=== PATIENT | male | born 1970 | race Caucasian/White ===

== ENCOUNTER 2018-10-12 17:31 | Inpatient (IN) | payer MEDICARE, OTHER ==
[~2018-10-12] VITALS: Ht 180.3 cm; Wt 118.5 kg
[2018-10-12] MEDS ORDERED: INSLAN SQ (17:41)
[2018-10-12] MEDS ORDERED: NIFE10 PO (17:41)
[2018-10-12] MEDS ORDERED: INSNOV SQ (17:41)
[2018-10-12] MEDS ORDERED: LOSA25TA41 PO (17:41)
[2018-10-12 17:44] LABS: GLUCOSE,POINT OF CARE 128 MG/DL (70-110)
[2018-10-12 18:39] LABS: BASOPHILS % (AUTO) 0.9 % (0.0-2.0); EOSINOPHILS % (AUTO) 1.2 % (1.0-6.0); HEMATOCRIT 30.8 % (41-53); HEMOGLOBIN 10.4 g/dL (13.5-17.5); LYMPHOCYTES # (AUTO) 0.9 K/uL (1.0-4.8); LYMPHOCYTES % (AUTO) 10.3 % (22.0-44.0); MEAN CORPUSCULAR HGB CONC 33.9 G/dL (31.0-37.0); MEAN CORPUSCULAR VOLUME 92 fL (80-100); MONOCYTES # (AUTO) 0.5 K/uL (0.1-1.0); MONOCYTES % (AUTO) 5.4 % (2.0-9.0); NEUTROPHILS # (AUTO) 7.5 K/uL (1.8-7.7); NEUTROPHILS % (AUTO) 82.2 % (40.0-70.0); PLATELET COUNT (AUTO) 207 K/uL (150-450); RED BLOOD CELL COUNT(AUTO) 3.37 MIL/uL (4.50-5.90); RED CELL DISTRIBUTION WIDTH 14.7 % (11.5-14.5)
[2018-10-12 18:54] LABS: ALBUMIN 3.4 g/dL (3.4-5.0); BILIRUBIN,TOTAL 0.4 mg/dL (0.1-1.0); CALCIUM, TOTAL 7.7 mg/dL (8.8-10.5); CREATININE 14.31 mg/dL (0.60-1.30); TOTAL PROTEIN, SERUM 7.6 g/dL (6.4-8.2)
[2018-10-12] MEDS ORDERED: INSULIN REGULAR, HUMAN 100 UNITS/ML IVP ONE (19:15)
[2018-10-12] MEDS ORDERED: SODIUM POLYSTYRENE SULFONATE 15 GM/60 ML SUSPENSION BOTTLE PO ONE (19:15)
[2018-10-12] MEDS ORDERED: DEXTROSE 50%-WATER 25 GM/50 ML SYRINGE IVP ONE (19:15)
[2018-10-12] MEDS ORDERED: ALBUTEROL SULFATE 5 MG/ML 20 ML NEB SOLN [BULK] NEB ONE (19:15)
[2018-10-12] MEDS ORDERED: CALCIUM GLUCONATE 100 MG/ML 10 ML IVP ONE (19:15)
[2018-10-12] MEDS ORDERED: ONDANSETRON HCL 4 MG/2 ML VIAL IVP PRN ×2 (21:45→22:15)
[2018-10-12] MEDS ORDERED: ACETAMINOPHEN 325 MG TABLET PO PRN ×2 (21:45→22:15)
[2018-10-12] MEDS ORDERED: 0.9% SODIUM CHLORIDE 10 ML SYRINGE IVP PRN (21:45)
[2018-10-12] MEDS ORDERED: MAGNESIUM HYDROXIDE SUSPENSION 30 ML UDCUP PO PRN (22:15)
[2018-10-12] MEDS ORDERED: ZOLPIDEM TARTRATE 5 MG TABLET PO PRN (22:15)
[2018-10-12] MEDS ORDERED: IPRATROPIUM BROMIDE 0.5 MG/2.5 ML NEB SOLUTION NEB PRN (22:15)
[2018-10-12] MEDS ORDERED: INSULIN LISPRO 100 UNITS/ML SQ PRN (22:15)
[2018-10-12] MEDS ORDERED: OxyCODONE HCL/ACETAMINOPHEN 5-325 MG TABLET PO PRN (22:15)
[2018-10-12] MEDS ORDERED: BISACODYL 10 MG RECTAL RECTAL SUPPOSITORY PR PRN (22:15)
[2018-10-12] MEDS ORDERED: MORPHINE SULFATE 2 MG/ML SYRINGE IVP PRN (22:15)
[2018-10-12] MEDS ORDERED: DEXTROSE 50%-WATER 25 GM/50 ML SYRINGE IVP PRN (22:15)
[2018-10-12] MEDS ORDERED: ALBUTEROL SULFATE 2.5 MG/0.5 ML NEB SOLUTION NEB PRN (22:15)
[2018-10-12 23:00] VITALS: BP 162/79
[2018-10-13 05:11] VITALS: BP 157/87
[2018-10-13 06:25] LABS: BASOPHILS % (AUTO) 0.3 % (0.0-2.0); EOSINOPHILS % (AUTO) 2.3 % (1.0-6.0); HEMATOCRIT 29.3 % (41-53); HEMOGLOBIN 9.6 g/dL (13.5-17.5); LYMPHOCYTES % (AUTO) 15.4 % (22.0-44.0); MEAN CORPUSCULAR HEMOGLOBIN 30.6 pg (26.0-34.0); MEAN CORPUSCULAR HGB CONC 32.6 G/dL (31.0-37.0); MEAN CORPUSCULAR VOLUME 94 fL (80-100); MONOCYTES # (AUTO) 0.5 K/uL (0.1-1.0); MONOCYTES % (AUTO) 7.2 % (2.0-9.0); NEUTROPHILS # (AUTO) 4.8 K/uL (1.8-7.7); NEUTROPHILS % (AUTO) 74.8 % (40.0-70.0); PLATELET COUNT (AUTO) 179 K/uL (150-450); RED BLOOD CELL COUNT(AUTO) 3.12 MIL/uL (4.50-5.90); RED CELL DISTRIBUTION WIDTH 14.9 % (11.5-14.5)
[2018-10-13 06:42] LABS: ALBUMIN 3.2 g/dL (3.4-5.0); BILIRUBIN,TOTAL 0.4 mg/dL (0.1-1.0); CALCIUM, TOTAL 8.5 mg/dL (8.8-10.5); CREATININE 11.48 mg/dL (0.60-1.30); MAGNESIUM 2.3 mg/dL (1.80-2.40); PHOSPHORUS 6.7 mg/dL (2.5-4.9); POTASSIUM 4.5 mmol/L (3.5-5.1); TOTAL PROTEIN, SERUM 7.3 g/dL (6.4-8.2)
[2018-10-13 06:50] LABS: GLUCOMETER DEV NAME(LOC) 5N.1; GLUCOSE,POINT OF CARE 131 MG/DL (70-110)
[2018-10-13 06:50] LABS: GLUCOMETER DEV NAME(LOC) 5N.1; GLUCOSE,POINT OF CARE 163 MG/DL (70-110)
[2018-10-13 07:21] LABS: HEMOGLOBIN A1C 9.3 % (4.5-6.2)
[2018-10-13 07:44] VITALS: BP 151/80
[2018-10-13] MEDS ORDERED: HEPARIN SODIUM,PORCINE 5,000 UNITS/ML VIAL SQ SCH (09:00)
[2018-10-13] MEDS ORDERED: AmLODIPine BESYLATE 10 MG TABLET PO SCH (09:00)
[2018-10-13] MEDS ORDERED: FAMOTIDINE 20 MG TABLET PO SCH (09:00)
[2018-10-13] MEDS ORDERED: EPOETIN ALFA 10,000 UNITS/ML VIAL SQ SCH (09:15)
[2018-10-13 11:53] VITALS: BP 154/88
[2018-10-13 13:55] LABS: GLUCOMETER DEV NAME(LOC) 5N.2; GLUCOSE,POINT OF CARE 272 MG/DL (70-110)
[2018-10-14] MEDS ORDERED: AmLODIPine BESYLATE 10 MG TABLET PO SCH (09:00)
[2018-10-15] MEDS ORDERED: EPOETIN ALFA 10,000 UNITS/ML VIAL SQ SCH (09:00)
== END 2018-10-13 13:15 | disposition home or self-care (01) | DRG 291 ==
LOC: EMS 17:35 → 5N 22:28
PROVIDERS: ADMIT Internal Medicine; ATTEND Internal Medicine
PROC: 5A1D70Z Performance of Urinary Filtration, Intermittent, Less than 6 Hours Per Day (ICD-10-PCS; principal; 2018-10-13)
DX: I13.2 Hypertensive heart and chronic kidney disease with heart failure and with stage 5 chronic kidney disease, or end stage renal disease (principal); N18.6 End stage renal disease; I50.33 Acute on chronic diastolic (congestive) heart failure; N25.81 Secondary hyperparathyroidism of renal origin; R64 Cachexia; E46 Unspecified protein-calorie malnutrition; E87.2 Acidosis; E87.5 Hyperkalemia; E11.65 Type 2 diabetes mellitus with hyperglycemia; D63.1 Anemia in chronic kidney disease; E83.51 Hypocalcemia; E11.22 Type 2 diabetes mellitus with diabetic chronic kidney disease; E66.9 Obesity, unspecified; E83.39 Other disorders of phosphorus metabolism; R62.7 Adult failure to thrive; Z99.2 Dependence on renal dialysis; Z83.3 Family history of diabetes mellitus; Z82.49 Family history of ischemic heart disease and other diseases of the circulatory system; Z68.36 Body mass index [BMI] 36.0-36.9, adult
CPT/HCPCS: 83036; 83735; 87081; 87340; 93005; 94644; 96372; 96374; 96375; G0378; J0610; J0885; J1644; J1815

== ENCOUNTER 2021-03-04 02:47 | Inpatient (IN) | payer MEDICARE, OTHER ==
[~2021-03-04] VITALS: Ht 180.3 cm; Wt 105.0 kg
[~2021-03-04 02:47] MED LIST: INSLAN SQ; INSNOV SQ; LOSA25TA21 PO; NIFE10 PO
[2021-03-04] MEDS ORDERED: PIPERACILLIN/TAZO 3.375 GM/D5W 50 ML IV ONE (03:15)
[2021-03-04 03:21] LABS: EOSINOPHILS % (AUTO) 0.6 % (1.0-6.0); HEMATOCRIT 35.5 % (41-53); HEMOGLOBIN 11.4 g/dL (13.5-17.5); LYMPHOCYTES # (AUTO) 1.5 K/uL (1.0-4.8); LYMPHOCYTES % (AUTO) 10.4 % (22.0-44.0); MEAN CORPUSCULAR HEMOGLOBIN 29.6 pg (26.0-34.0); MEAN CORPUSCULAR VOLUME 93 fL (80-100); MONOCYTES # (AUTO) 0.3 K/uL (0.1-1.0); MONOCYTES % (AUTO) 2.1 % (2.0-9.0); NEUTROPHILS # (AUTO) 12.2 K/uL (1.8-7.7); PLATELET COUNT (AUTO) 337 K/uL (150-450); RED BLOOD CELL COUNT(AUTO) 3.84 MIL/uL (4.50-5.90)
[2021-03-04 03:22] LABS: NEUTROPHILS % (AUTO) 86.9 % (40.0-70.0)
[2021-03-04 03:23] LABS: ANION GAP 10 mmol/L (8-16); CALCIUM, TOTAL 9.1 mg/dL (8.8-10.5); CARBON DIOXIDE 31 mmol/L (22-29); CHLORIDE 89 mmol/L (98-107); CREATININE 11.85 mg/dL (0.60-1.30); GLOMERULAR FILTR. RATE CALC 5 mL/min (>60); GLUCOSE,RANDOM 293 mg/dL (70-110); POTASSIUM 4.2 mmol/L (3.5-5.1); SODIUM SERUM 130 mmol/L (136-145); UREA NITROGEN, BLOOD 57 mg/dL (7-18)
[2021-03-04 03:28] LABS: ALANINE AMINOTRANSFERASE 16 U/L (12-78); ALBUMIN 2.1 g/dL (3.4-5.0); ALKALINE PHOSPHATASE 153 U/L (46-116); ASPARTATE AMINOTRANSFERASE 16 U/L (15-37); BILIRUBIN,TOTAL 0.8 mg/dL (0.1-1.0); LIPASE 1032 U/L (73-393); PHOSPHORUS 3.3 mg/dL (2.5-4.9); TOTAL PROTEIN, SERUM 7.9 g/dL (6.4-8.2)
[2021-03-04] MEDS ORDERED: HYDROmorphone 2 MG/ML VIAL IVP ONE (03:30)
[2021-03-04] MEDS ORDERED: ONDANSETRON HCL 4 MG/2 ML VIAL IVP ONE (03:30)
[2021-03-04 03:49] LABS: B-TYPE NATRIURETIC PEPTIDE 1760 pg/mL (0-100); LACTIC ACID 4.2 mmol/L (0.4-2.0)
[2021-03-04 04:05] LABS: COVID AG,FIA SOURCE NASOPHARYNGEAL
[2021-03-04] MEDS ORDERED: CLINDAMYCIN 900 MG/D5% WATER 50 ML IV ONE (04:45)
[2021-03-04] MEDS ORDERED: SODIUM CHLORIDE 0.9% 1,000 ML IV ONE (05:00)
[2021-03-04] MEDS ORDERED: VANCOMYCIN HCL 1 GM/D5% WATER 200 ML IV ONE (05:00)
[2021-03-04] MEDS ORDERED: ONDANSETRON HCL 4 MG/2 ML VIAL IVP PRN ×2 (05:15→13:15)
[2021-03-04] MEDS ORDERED: 0.9% SODIUM CHLORIDE 10 ML SYRINGE IVP PRN (05:15)
[2021-03-04] MEDS ORDERED: BUPIVACAINE 0.25%/EPI 1:200,000/PF 10 ML VIAL ONE (06:16)
[2021-03-04] MEDS ORDERED: SODIUM CHLORIDE 0.9% 1,000 ML ONE (06:29)
[2021-03-04] MEDS ORDERED: VANCOMYCIN HCL 500 MG/VIAL ONE (06:48)
[2021-03-04] MEDS ORDERED: FentaNYL CITRATE PF 100 MCG/2 ML VIAL IVP PRN (07:15)
[2021-03-04] MEDS ORDERED: HYDROmorphone 2 MG/ML VIAL IVP PRN (07:15)
[2021-03-04] MEDS ORDERED: MEPERIDINE-PF 25 MG/ML VIAL IVP PRN (07:15)
[2021-03-04] MEDS ORDERED: BUPIVACAINE LIPOSOME/PF 1.3%-13.3MG/ML SUSPENSION 20 ML VIAL INJ ONE (07:15)
[2021-03-04] MEDS ORDERED: BUPIVACAINE HCL/PF 0.5% 30 ML VIAL ONE (07:24)
[2021-03-04] MEDS ORDERED: MORPHINE SULFATE 2 MG/ML SYRINGE IVP ONE (08:00)
[2021-03-04 09:12] LABS: SPECIMENTYPE,BODY FLUID PERITONEAL
[2021-03-04 10:18] VITALS: BP 105/57
[2021-03-04 10:20] LABS: APPEARANCE,SPUN,BODY FLUID CLEAR (CLEAR); APPEARANCE,UNSPUN,BODY FLUID HAZY (CLEAR); COLOR,BODY FLUID PINK (LT YELLOW); TOTAL VOLUME,BODY FLUID 40 mL
[2021-03-04 10:47] LABS: BASOPHILS,BODY FLUID 0 %; EOSINOPHILS,BF (ANAL) 0 %; LYMPHOCYTES,BODY FLUID 6 %; MONOCYTES,BODY FLUID 21 %; NEUTROPHILS,BODY FLUID 73 %; WBC, BODY FLUID 9870 /cu. mm.
[2021-03-04 12:00] VITALS: BP 145/41
[2021-03-04] MEDS ORDERED: CALC667C PO (12:25)
[2021-03-04] MEDS ORDERED: LOSA100T58 PO (12:25)
[2021-03-04] MEDS ORDERED: METO100T14 PO (12:25)
[2021-03-04] MEDS ORDERED: NIFE-39 PO (12:25)
[2021-03-04] MEDS: PIPERACILLIN SODIUM/TAZOBACTAM 2.25 GM in DEXTROSE 5%-WATER 50 ML IV SCH ×2 (12:36→18:07)
[2021-03-04] MEDS ORDERED: ZOLPIDEM TARTRATE 5 MG TABLET PO PRN (13:15)
[2021-03-04] MEDS ORDERED: BISACODYL 10 MG RECTAL RECTAL SUPPOSITORY PR PRN (13:15)
[2021-03-04] MEDS ORDERED: DEXTROSE 5%-0.45% SODIUM CHL 1,000 ML IV ONE (13:15)
[2021-03-04] MEDS ORDERED: DEXTROSE 50%-WATER 25 GM/50 ML SYRINGE IVP PRN (13:15)
[2021-03-04] MEDS ORDERED: MAGNESIUM HYDROXIDE SUSPENSION 30 ML UDCUP PO PRN (13:15)
[2021-03-04 16:00] VITALS: BP 146/88
[2021-03-04] MEDS: METOPROLOL TARTRATE 5 MG/5 ML VIAL IVP SCH ×3 (16:00→23:39)
[2021-03-04] MEDS: INSULIN LISPRO 100 UNITS/ML SQ PRN ×2 (17:41→21:06)
[2021-03-04 20:00] VITALS: BP 166/80
[2021-03-04] MEDS: OXYGEN THERAPY IH SCH ×2 (20:48→20:50)
[2021-03-04] MEDS: DOCUSATE SODIUM 100 MG CAPSULE PO SCH (20:49)
[2021-03-04] MEDS: MORPHINE SULFATE 2 MG/ML SYRINGE IVP PRN (21:04)
[2021-03-04] MEDS: INSULIN GLARGINE,HUM.REC.ANLOG 100 UNITS/ML SQ SCH (21:06)
[2021-03-04 21:14] LABS: GLUCOSE,POINT OF CARE 279 MG/DL (70-110)
[2021-03-04 21:14] LABS: GLUCOSE,POINT OF CARE 288 MG/DL (70-110)
[2021-03-05] VITALS (8 sets, daily range): BP systolic 108–178; BP diastolic 59–104
[2021-03-05] MEDS: MORPHINE SULFATE 2 MG/ML SYRINGE IVP PRN ×3 (01:06→20:21)
[2021-03-05] MEDS: PIPERACILLIN SODIUM/TAZOBACTAM 2.25 GM in DEXTROSE 5%-WATER 50 ML IV SCH ×3 (03:08→19:49)
[2021-03-05 05:27] LABS: EOSINOPHILS % (AUTO) 0.6 % (1.0-6.0); HEMATOCRIT 27.4 % (41-53); HEMOGLOBIN 8.7 g/dL (13.5-17.5); LYMPHOCYTES # (AUTO) 1.4 K/uL (1.0-4.8); MEAN CORPUSCULAR HEMOGLOBIN 29.8 pg (26.0-34.0); MEAN CORPUSCULAR HGB CONC 31.7 G/dL (31.0-37.0); MEAN CORPUSCULAR VOLUME 94 fL (80-100); MONOCYTES # (AUTO) 0.4 K/uL (0.1-1.0); MONOCYTES % (AUTO) 2.6 % (2.0-9.0); NEUTROPHILS # (AUTO) 13.2 K/uL (1.8-7.7); PLATELET COUNT (AUTO) 266 K/uL (150-450); RED BLOOD CELL COUNT(AUTO) 2.91 MIL/uL (4.50-5.90)
[2021-03-05 05:36] LABS: ALBUMIN 1.3 g/dL (3.4-5.0); BILIRUBIN,TOTAL 0.6 mg/dL (0.1-1.0); CALCIUM, TOTAL 8.3 mg/dL (8.8-10.5); CREATININE 11.92 mg/dL (0.60-1.30); POTASSIUM 4.9 mmol/L (3.5-5.1); TOTAL PROTEIN, SERUM 5.9 g/dL (6.4-8.2)
[2021-03-05] MEDS ORDERED: FentaNYL CITRATE PF 100 MCG/2 ML VIAL IVP ONE (05:55)
[2021-03-05] MEDS ORDERED: MIDAZOLAM HCL 2 MG/2 ML VIAL IVP ONE (05:55)
[2021-03-05] MEDS ORDERED: ONDANSETRON HCL 4 MG/2 ML VIAL IVP ONE (05:55)
[2021-03-05] MEDS ORDERED: DEXAMETHASONE SOD PHOS 4 MG/ML VIAL IVP ONE (05:55)
[2021-03-05] MEDS ORDERED: MORPHINE SULFATE 4 MG/ML SYRINGE IVP ONE (05:55)
[2021-03-05] MEDS ORDERED: PROPOFOL 1% 20 ML VIAL IVP ONE (05:55)
[2021-03-05] MEDS ORDERED: MORPHINE SULFATE/PF 0.5 MG/ML 10 ML AMP IVP ONE (05:55)
[2021-03-05] MEDS ORDERED: LIDOCAINE/PF 2% 5 ML VIAL IM ONE (05:55)
[2021-03-05] MEDS ORDERED: PHENYLEPHRINE HCL 10 MG/ML VIAL IVP ONE (05:55)
[2021-03-05] MEDS ORDERED: ROCURONIUM BROMIDE 10 MG/ML 5 ML VIAL IVP ONE (05:55)
[2021-03-05] MEDS ORDERED: 0.9% SODIUM CHLORIDE 10 ML VIAL IVP ONE (05:55)
[2021-03-05 06:08] LABS: NEUTROPHILS % (AUTO) 87.8 % (40.0-70.0)
[2021-03-05] MEDS: INSULIN LISPRO 100 UNITS/ML SQ PRN (06:37)
[2021-03-05 07:56] LABS: GLUCOSE,POINT OF CARE 194 MG/DL (70-110)
[2021-03-05] MEDS: INSULIN GLARGINE,HUM.REC.ANLOG 100 UNITS/ML SQ SCH ×2 (09:00→20:20)
[2021-03-05] MEDS: METOPROLOL TARTRATE 5 MG/5 ML VIAL IVP SCH ×2 (09:03→16:18)
[2021-03-05] MEDS: PARICALCITOL 5 MCG/1 ML VIAL IVP SCH (09:04)
[2021-03-05] MEDS: DOCUSATE SODIUM 100 MG CAPSULE PO SCH ×2 (09:04→20:20)
[2021-03-05] MEDS: PANTOPRAZOLE SODIUM 40 MG DR TABLET PO SCH (09:09)
[2021-03-05] MEDS: HYDROCODONE/ACETAMINOPHEN 5-325 MG TABLET PO PRN ×2 (09:09→14:43)
[2021-03-05 10:20] LABS: GLUCOSE,POINT OF CARE 142 MG/DL (70-110)
[2021-03-05] MEDS: ACETAMINOPHEN 325 MG TABLET PO PRN (16:18)
[2021-03-05 17:37] LABS: HEMATOCRIT 30.4 % (41-53); HEMOGLOBIN 9.7 g/dL (13.5-17.5)
[2021-03-05] MEDS ORDERED: LIDOCAINE/PF 1% 2 ML VIAL CAUDAL ONE (17:37)
[2021-03-05 17:40] LABS: GLUCOSE,POINT OF CARE 116 MG/DL (70-110)
[2021-03-05 19:50] LABS: GLUCOSE,POINT OF CARE 137 MG/DL (70-110)
[2021-03-05] MEDS: OXYGEN THERAPY IH SCH (19:50)
[2021-03-05 21:14] LABS: GLUCOSE,POINT OF CARE 90 MG/DL (70-110)
[2021-03-06] VITALS (8 sets, daily range): BP systolic 149–194; BP diastolic 73–116
[2021-03-06] MEDS: METOPROLOL TARTRATE 5 MG/5 ML VIAL IVP SCH ×4 (00:39→23:19)
[2021-03-06] MEDS: MORPHINE SULFATE 2 MG/ML SYRINGE IVP PRN ×3 (00:40→10:56)
[2021-03-06] MEDS ORDERED: SODIUM CHLORIDE 0.9% 250 ML IV ONE (00:56)
[2021-03-06] MEDS: PIPERACILLIN SODIUM/TAZOBACTAM 2.25 GM in DEXTROSE 5%-WATER 50 ML IV SCH (03:57)
[2021-03-06 07:03] LABS: HEMATOCRIT 30.7 % (41-53); HEMOGLOBIN 9.8 g/dL (13.5-17.5); MEAN CORPUSCULAR HEMOGLOBIN 30.3 pg (26.0-34.0); MEAN CORPUSCULAR VOLUME 95 fL (80-100); PLATELET COUNT (AUTO) 313 K/uL (150-450); RED BLOOD CELL COUNT(AUTO) 3.24 MIL/uL (4.50-5.90); RED CELL DISTRIBUTION WIDTH 14.7 % (11.5-14.5)
[2021-03-06 07:04] LABS: BASOPHILS % (AUTO) 0.1 % (0.0-2.0); EOSINOPHILS % (AUTO) 4.6 % (1.0-6.0); LYMPHOCYTES # (AUTO) 1.9 K/uL (1.0-4.8); MONOCYTES # (AUTO) 0.5 K/uL (0.1-1.0); MONOCYTES % (AUTO) 3.3 % (2.0-9.0); NEUTROPHILS # (AUTO) 11.8 K/uL (1.8-7.7)
[2021-03-06 07:10] LABS: ALBUMIN 1.4 g/dL (3.4-5.0); BILIRUBIN,TOTAL 0.5 mg/dL (0.1-1.0); CREATININE 7.54 mg/dL (0.60-1.30); POTASSIUM 4.5 mmol/L (3.5-5.1); TOTAL PROTEIN, SERUM 6.5 g/dL (6.4-8.2)
[2021-03-06] MEDS: OXYGEN THERAPY IH SCH ×2 (08:00→21:10)
[2021-03-06] MEDS: INSULIN GLARGINE,HUM.REC.ANLOG 100 UNITS/ML SQ SCH ×2 (09:00→21:16)
[2021-03-06] MEDS ORDERED: *CLINICAL-MEROPENEM DOSING CLINICAL ONE (10:30)
[2021-03-06] MEDS ORDERED: LIDOCAINE/PF 1% 2 ML VIAL IM ONE (12:00)
[2021-03-06] MEDS ORDERED: MEROPENEM 1 GM in SODIUM CHLORIDE 0.9% 100 ML IV ONE (13:00)
[2021-03-06] MEDS ORDERED: CASPOFUNGIN ACETATE 70 MG in SODIUM CHLORIDE 0.9% 250 ML IV ONE (13:00)
[2021-03-06] MEDS: HYDROCODONE/ACETAMINOPHEN 5-325 MG TABLET PO PRN ×2 (14:38→23:27)
[2021-03-06] MEDS: EPOETIN ALFA 10,000 UNITS/ML 2 ML VIAL SQ SCH (17:04)
[2021-03-06] MEDS: DOCUSATE SODIUM 100 MG CAPSULE PO SCH ×2 (17:04→21:10)
[2021-03-06] MEDS: PANTOPRAZOLE SODIUM 40 MG DR TABLET PO SCH (17:04)
[2021-03-06 18:17] LABS: GLUCOMETER DEV NAME(LOC) 5S.1; GLUCOSE,POINT OF CARE 71 MG/DL (70-110)
[2021-03-06 18:17] LABS: GLUCOMETER DEV NAME(LOC) 5S.1; GLUCOSE,POINT OF CARE 124 MG/DL (70-110)
[2021-03-06 19:55] LABS: GLUCOMETER DEV NAME(LOC) 5N.1C; GLUCOSE,POINT OF CARE 72 MG/DL (70-110)
[2021-03-06 19:55] LABS: GLUCOMETER DEV NAME(LOC) 5N.1C; GLUCOSE,POINT OF CARE 73 MG/DL (70-110)
[2021-03-06 19:55] LABS: GLUCOMETER DEV NAME(LOC) 5N.1C; GLUCOSE,POINT OF CARE 73 MG/DL (70-110)
[2021-03-07] VITALS (8 sets, daily range): BP systolic 147–178; BP diastolic 67–88
[2021-03-07] MEDS: ACETAMINOPHEN 325 MG TABLET PO PRN ×2 (02:25→16:41)
[2021-03-07] MEDS: HYDROCODONE/ACETAMINOPHEN 5-325 MG TABLET PO PRN ×2 (04:46→22:12)
[2021-03-07 07:08] LABS: BASOPHILS % (AUTO) 0.3 % (0.0-2.0); EOSINOPHILS % (AUTO) 4.6 % (1.0-6.0); HEMATOCRIT 31.1 % (41-53); LYMPHOCYTES # (AUTO) 2.3 K/uL (1.0-4.8); LYMPHOCYTES % (AUTO) 15.3 % (22.0-44.0); MEAN CORPUSCULAR HEMOGLOBIN 29.9 pg (26.0-34.0); MEAN CORPUSCULAR HGB CONC 32.1 G/dL (31.0-37.0); MEAN CORPUSCULAR VOLUME 93 fL (80-100); MONOCYTES # (AUTO) 0.7 K/uL (0.1-1.0); MONOCYTES % (AUTO) 4.9 % (2.0-9.0); NEUTROPHILS % (AUTO) 74.9 % (40.0-70.0); PLATELET COUNT (AUTO) 347 K/uL (150-450); RED BLOOD CELL COUNT(AUTO) 3.34 MIL/uL (4.50-5.90); RED CELL DISTRIBUTION WIDTH 14.6 % (11.5-14.5)
[2021-03-07 07:43] LABS: ALBUMIN 1.5 g/dL (3.4-5.0); BILIRUBIN,TOTAL 0.4 mg/dL (0.1-1.0); CALCIUM, TOTAL 8.7 mg/dL (8.8-10.5); TOTAL PROTEIN, SERUM 6.7 g/dL (6.4-8.2)
[2021-03-07 07:49] LABS: CREATININE 5.67 mg/dL (0.60-1.30)
[2021-03-07] MEDS: OXYGEN THERAPY IH SCH ×2 (08:00→20:00)
[2021-03-07] MEDS: DOCUSATE SODIUM 100 MG CAPSULE PO SCH ×2 (08:30→22:11)
[2021-03-07] MEDS: PANTOPRAZOLE SODIUM 40 MG DR TABLET PO SCH (08:30)
[2021-03-07] MEDS: PARICALCITOL 5 MCG/1 ML VIAL IVP SCH (08:35)
[2021-03-07] MEDS: METOPROLOL TARTRATE 5 MG/5 ML VIAL IVP SCH (08:36)
[2021-03-07] MEDS: INSULIN GLARGINE,HUM.REC.ANLOG 100 UNITS/ML SQ SCH ×2 (08:40→22:11)
[2021-03-07] MEDS ORDERED: SODIUM CHLORIDE 0.9% 1,000 ML ONE (09:42)
[2021-03-07] MEDS: AmLODIPine BESYLATE 5 MG TABLET PO SCH (11:26)
[2021-03-07] MEDS: INSULIN LISPRO 100 UNITS/ML SQ PRN ×3 (11:27→22:25)
[2021-03-07] MEDS: CASPOFUNGIN ACETATE 50 MG in SODIUM CHLORIDE 0.9% 250 ML IV SCH (13:12)
[2021-03-07 14:56] LABS: GLUCOMETER DEV NAME(LOC) 5N.1C; GLUCOSE,POINT OF CARE 149 MG/DL (70-110)
[2021-03-07 14:57] LABS: GLUCOMETER DEV NAME(LOC) 5S.1; GLUCOSE,POINT OF CARE 144 MG/DL (70-110)
[2021-03-07 14:57] LABS: GLUCOMETER DEV NAME(LOC) 5S.1; GLUCOSE,POINT OF CARE 182 MG/DL (70-110)
[2021-03-07] MEDS: MEROPENEM 500 MG in SODIUM CHLORIDE 0.9% 50 ML IV SCH (15:11)
[2021-03-07 20:20] LABS: GLUCOMETER DEV NAME(LOC) 5S.1; GLUCOSE,POINT OF CARE 194 MG/DL (70-110)
[2021-03-07] MEDS: METOPROLOL TARTRATE 25 MG TABLET PO SCH (22:12)
[2021-03-08 02:06] LABS: HEPATITIS C AB (EIA) <0.1 s/co ratio (0.0-0.9)
[2021-03-08] MEDS: INSULIN LISPRO 100 UNITS/ML SQ PRN ×2 (05:53→12:19)
[2021-03-08] MEDS: ACETAMINOPHEN 325 MG TABLET PO PRN ×3 (05:53→21:41)
[2021-03-08 07:20] LABS: BASOPHILS % (AUTO) 0.7 % (0.0-2.0); EOSINOPHILS % (AUTO) 3.8 % (1.0-6.0); HEMATOCRIT 28.6 % (41-53); HEMOGLOBIN 9.1 g/dL (13.5-17.5); LYMPHOCYTES # (AUTO) 1.3 K/uL (1.0-4.8); LYMPHOCYTES % (AUTO) 11.9 % (22.0-44.0); MEAN CORPUSCULAR HEMOGLOBIN 29.9 pg (26.0-34.0); MEAN CORPUSCULAR HGB CONC 31.9 G/dL (31.0-37.0); MEAN CORPUSCULAR VOLUME 94 fL (80-100); MONOCYTES # (AUTO) 0.8 K/uL (0.1-1.0); MONOCYTES % (AUTO) 6.7 % (2.0-9.0); NEUTROPHILS # (AUTO) 8.7 K/uL (1.8-7.7); NEUTROPHILS % (AUTO) 76.9 % (40.0-70.0); PLATELET COUNT (AUTO) 318 K/uL (150-450); RED BLOOD CELL COUNT(AUTO) 3.04 MIL/uL (4.50-5.90); RED CELL DISTRIBUTION WIDTH 14.3 % (11.5-14.5)
[2021-03-08 07:27] VITALS: BP 133/57
[2021-03-08 08:45] LABS: ALBUMIN 1.3 g/dL (3.4-5.0); CALCIUM, TOTAL 8.2 mg/dL (8.8-10.5); CREATININE 7.44 mg/dL (0.60-1.30); POTASSIUM 4.1 mmol/L (3.5-5.1); TOTAL PROTEIN, SERUM 5.7 g/dL (6.4-8.2)
[2021-03-08 08:59] LABS: BILIRUBIN,TOTAL 0.4 mg/dL (0.1-1.0)
[2021-03-08] MEDS: DOCUSATE SODIUM 100 MG CAPSULE PO SCH ×2 (09:06→21:19)
[2021-03-08] MEDS: AmLODIPine BESYLATE 5 MG TABLET PO SCH (09:06)
[2021-03-08] MEDS: PANTOPRAZOLE SODIUM 40 MG DR TABLET PO SCH (09:07)
[2021-03-08] MEDS: METOPROLOL TARTRATE 25 MG TABLET PO SCH ×2 (09:07→21:19)
[2021-03-08] MEDS: EPOETIN ALFA 10,000 UNITS/ML 2 ML VIAL SQ SCH (09:08)
[2021-03-08] MEDS: INSULIN GLARGINE,HUM.REC.ANLOG 100 UNITS/ML SQ SCH ×2 (09:13→21:21)
[2021-03-08 13:25] VITALS: BP 138/66
[2021-03-08] MEDS: CASPOFUNGIN ACETATE 50 MG in SODIUM CHLORIDE 0.9% 250 ML IV SCH ×2 (13:52→21:20)
[2021-03-08] MEDS ORDERED: SODIUM CHLORIDE 0.9% 2,000 ML ONE (14:43)
[2021-03-08 17:38] LABS: GLUCOMETER DEV NAME(LOC) 5S.1; GLUCOSE,POINT OF CARE 183 MG/DL (70-110)
[2021-03-08] MEDS: HYDROCODONE/ACETAMINOPHEN 5-325 MG TABLET PO PRN (17:43)
[2021-03-08] MEDS: OXYGEN THERAPY IH SCH (20:00)
[2021-03-08] MEDS: MEROPENEM 500 MG in SODIUM CHLORIDE 0.9% 50 ML IV SCH (20:06)
[2021-03-08 20:26] VITALS: BP 159/73
[2021-03-08 20:49] LABS: GLUCOMETER DEV NAME(LOC) 5N.1C; GLUCOSE,POINT OF CARE 193 MG/DL (70-110)
[2021-03-08 20:49] LABS: GLUCOMETER DEV NAME(LOC) 5N.1C; GLUCOSE,POINT OF CARE 152 MG/DL (70-110)
[2021-03-08 20:49] LABS: GLUCOMETER DEV NAME(LOC) 5N.1C; GLUCOSE,POINT OF CARE 135 MG/DL (70-110)
[2021-03-08 23:48] VITALS: BP 144/73
[2021-03-09 01:32] LABS: GLUCOMETER DEV NAME(LOC) 5N.1C; GLUCOSE,POINT OF CARE 195 MG/DL (70-110)
[2021-03-09] MEDS: HYDROCODONE/ACETAMINOPHEN 5-325 MG TABLET PO PRN ×3 (02:11→23:43)
[2021-03-09 04:33] VITALS: BP 128/54
[2021-03-09] MEDS: INSULIN LISPRO 100 UNITS/ML SQ PRN ×4 (06:21→20:38)
[2021-03-09 06:47] LABS: BASOPHILS % (AUTO) 0.5 % (0.0-2.0); EOSINOPHILS % (AUTO) 3.6 % (1.0-6.0); HEMATOCRIT 28.5 % (41-53); HEMOGLOBIN 9.3 g/dL (13.5-17.5); LYMPHOCYTES # (AUTO) 1.3 K/uL (1.0-4.8); LYMPHOCYTES % (AUTO) 13.2 % (22.0-44.0); MEAN CORPUSCULAR HEMOGLOBIN 30.5 pg (26.0-34.0); MEAN CORPUSCULAR HGB CONC 32.7 G/dL (31.0-37.0); MEAN CORPUSCULAR VOLUME 93 fL (80-100); MONOCYTES # (AUTO) 0.9 K/uL (0.1-1.0); MONOCYTES % (AUTO) 9.3 % (2.0-9.0); NEUTROPHILS # (AUTO) 7.3 K/uL (1.8-7.7); NEUTROPHILS % (AUTO) 73.4 % (40.0-70.0); PLATELET COUNT (AUTO) 366 K/uL (150-450); RED BLOOD CELL COUNT(AUTO) 3.07 MIL/uL (4.50-5.90); RED CELL DISTRIBUTION WIDTH 14.4 % (11.5-14.5)
[2021-03-09 07:34] LABS: ALBUMIN 1.5 g/dL (3.4-5.0); BILIRUBIN,TOTAL 0.2 mg/dL (0.1-1.0); CALCIUM, TOTAL 8.6 mg/dL (8.8-10.5); CREATININE 5.15 mg/dL (0.60-1.30); POTASSIUM 4.5 mmol/L (3.5-5.1); TOTAL PROTEIN, SERUM 6.4 g/dL (6.4-8.2)
[2021-03-09] MEDS: OXYGEN THERAPY IH SCH ×2 (08:00→20:00)
[2021-03-09 08:04] VITALS: BP 136/75
[2021-03-09] MEDS: METOPROLOL TARTRATE 25 MG TABLET PO SCH ×2 (08:48→20:26)
[2021-03-09] MEDS: PARICALCITOL 5 MCG/1 ML VIAL IVP SCH (08:48)
[2021-03-09] MEDS: DOCUSATE SODIUM 100 MG CAPSULE PO SCH ×2 (08:48→20:26)
[2021-03-09] MEDS: AmLODIPine BESYLATE 5 MG TABLET PO SCH (08:49)
[2021-03-09] MEDS: PANTOPRAZOLE SODIUM 40 MG DR TABLET PO SCH (08:49)
[2021-03-09] MEDS: INSULIN GLARGINE,HUM.REC.ANLOG 100 UNITS/ML SQ SCH ×2 (08:52→20:36)
[2021-03-09] MEDS ORDERED: LACTULOSE 20 GM/30 ML SOLUTION UDCUP PO PRN (10:45)
[2021-03-09 12:32] VITALS: BP 130/69
[2021-03-09 15:15] VITALS: BP 181/76
[2021-03-09] MEDS: CloNIDine HCL 0.1 MG TABLET PO PRN (15:53)
[2021-03-09] MEDS: MEROPENEM 500 MG in SODIUM CHLORIDE 0.9% 50 ML IV SCH (15:54)
[2021-03-09 19:35] VITALS: BP 139/69
[2021-03-09] MEDS: CASPOFUNGIN ACETATE 50 MG in SODIUM CHLORIDE 0.9% 250 ML IV SCH (20:26)
[2021-03-09 23:57] VITALS: BP 160/88
[2021-03-10 04:08] VITALS: BP 150/65
[2021-03-10] MEDS: HYDROCODONE/ACETAMINOPHEN 5-325 MG TABLET PO PRN ×2 (04:11→21:14)
[2021-03-10 06:33] LABS: GLUCOMETER DEV NAME(LOC) 5N.3; GLUCOSE,POINT OF CARE 217 MG/DL (70-110)
[2021-03-10] MEDS: INSULIN LISPRO 100 UNITS/ML SQ PRN ×4 (06:57→21:22)
[2021-03-10 06:59] LABS: GLUCOMETER DEV NAME(LOC) 5N.1C; GLUCOSE,POINT OF CARE 184 MG/DL (70-110)
[2021-03-10 06:59] LABS: GLUCOMETER DEV NAME(LOC) 5N.1C; GLUCOSE,POINT OF CARE 198 MG/DL (70-110)
[2021-03-10 06:59] LABS: GLUCOMETER DEV NAME(LOC) 5N.1C; GLUCOSE,POINT OF CARE 204 MG/DL (70-110)
[2021-03-10 07:56] VITALS: BP 152/76
[2021-03-10] MEDS: OXYGEN THERAPY IH SCH ×2 (08:00→20:00)
[2021-03-10 08:41] LABS: GLUCOMETER DEV NAME(LOC) 5S.1; GLUCOSE,POINT OF CARE 193 MG/DL (70-110)
[2021-03-10] MEDS: METOPROLOL TARTRATE 25 MG TABLET PO SCH ×2 (09:19→21:14)
[2021-03-10] MEDS: AmLODIPine BESYLATE 5 MG TABLET PO SCH (09:19)
[2021-03-10] MEDS: DOCUSATE SODIUM 100 MG CAPSULE PO SCH ×2 (09:19→21:14)
[2021-03-10] MEDS: PANTOPRAZOLE SODIUM 40 MG DR TABLET PO SCH (09:19)
[2021-03-10] MEDS: INSULIN GLARGINE,HUM.REC.ANLOG 100 UNITS/ML SQ SCH ×2 (09:23→21:21)
[2021-03-10 12:10] LABS: GLUCOMETER DEV NAME(LOC) 5N.1C; GLUCOSE,POINT OF CARE 218 MG/DL (70-110)
[2021-03-10 12:11] VITALS: BP 140/67
[2021-03-10 12:28] VITALS: BP 145/65
[2021-03-10 15:57] VITALS: BP 154/78
[2021-03-10] MEDS: MEROPENEM 500 MG in SODIUM CHLORIDE 0.9% 50 ML IV SCH (16:14)
[2021-03-10 19:59] VITALS: BP 183/80
[2021-03-10] MEDS: CloNIDine HCL 0.1 MG TABLET PO PRN (21:14)
[2021-03-10] MEDS: CASPOFUNGIN ACETATE 50 MG in SODIUM CHLORIDE 0.9% 250 ML IV SCH (21:14)
[2021-03-10 22:08] LABS: GLUCOMETER DEV NAME(LOC) 5N.1C; GLUCOSE,POINT OF CARE 182 MG/DL (70-110)
[2021-03-11 00:09] VITALS: BP 170/76
[2021-03-11 04:38] VITALS: BP 166/85
[2021-03-11] MEDS: INSULIN LISPRO 100 UNITS/ML SQ PRN ×3 (06:29→21:07)
[2021-03-11] MEDS: HYDROCODONE/ACETAMINOPHEN 5-325 MG TABLET PO PRN ×2 (06:30→11:26)
[2021-03-11 07:20] VITALS: BP 153/71
[2021-03-11] MEDS: OXYGEN THERAPY IH SCH ×2 (08:00→20:00)
[2021-03-11 11:05] VITALS: BP 163/71
[2021-03-11] MEDS: DOCUSATE SODIUM 100 MG CAPSULE PO SCH ×2 (11:26→21:05)
[2021-03-11 11:36] LABS: GLUCOMETER DEV NAME(LOC) 5S.2B; GLUCOSE,POINT OF CARE 134 MG/DL (70-110)
[2021-03-11] MEDS: METOPROLOL TARTRATE 25 MG TABLET PO SCH ×2 (11:48→21:05)
[2021-03-11] MEDS: PANTOPRAZOLE SODIUM 40 MG DR TABLET PO SCH (11:48)
[2021-03-11] MEDS: AmLODIPine BESYLATE 5 MG TABLET PO SCH (11:49)
[2021-03-11] MEDS: INSULIN GLARGINE,HUM.REC.ANLOG 100 UNITS/ML SQ SCH ×2 (11:50→21:06)
[2021-03-11] MEDS: EPOETIN ALFA 10,000 UNITS/ML 2 ML VIAL SQ SCH (11:52)
[2021-03-11 13:19] LABS: GLUCOMETER DEV NAME(LOC) 5N.1C; GLUCOSE,POINT OF CARE 165 MG/DL (70-110)
[2021-03-11 15:56] VITALS: BP 161/74
[2021-03-11] MEDS: MEROPENEM 500 MG in SODIUM CHLORIDE 0.9% 50 ML IV SCH (16:30)
[2021-03-11 18:47] LABS: GLUCOMETER DEV NAME(LOC) 5S.1; GLUCOSE,POINT OF CARE 179 MG/DL (70-110)
[2021-03-11 20:30] VITALS: BP 159/78
[2021-03-11] MEDS ORDERED: SODIUM CHLORIDE 0.9% 250 ML IV ONE (21:04)
[2021-03-11] MEDS: CASPOFUNGIN ACETATE 50 MG in SODIUM CHLORIDE 0.9% 250 ML IV SCH (21:05)
[2021-03-12 00:18] VITALS: BP 155/75
[2021-03-12] MEDS: HYDROCODONE/ACETAMINOPHEN 5-325 MG TABLET PO PRN ×2 (02:26→09:11)
[2021-03-12 03:54] LABS: GLUCOMETER DEV NAME(LOC) 5S.1; GLUCOSE,POINT OF CARE 205 MG/DL (70-110)
[2021-03-12 05:50] VITALS: BP 153/66
[2021-03-12] MEDS: INSULIN LISPRO 100 UNITS/ML SQ PRN (06:32)
[2021-03-12 07:12] VITALS: BP 165/82
[2021-03-12] MEDS: DOCUSATE SODIUM 100 MG CAPSULE PO SCH (09:00)
[2021-03-12] MEDS: PARICALCITOL 5 MCG/1 ML VIAL IVP SCH (09:06)
[2021-03-12] MEDS: AmLODIPine BESYLATE 5 MG TABLET PO SCH (09:20)
[2021-03-12] MEDS: PANTOPRAZOLE SODIUM 40 MG DR TABLET PO SCH (09:20)
[2021-03-12] MEDS: METOPROLOL TARTRATE 25 MG TABLET PO SCH (09:21)
[2021-03-12] MEDS: INSULIN GLARGINE,HUM.REC.ANLOG 100 UNITS/ML SQ SCH (09:29)
[2021-03-12 10:24] LABS: GLUCOMETER DEV NAME(LOC) 5N.1C; GLUCOSE,POINT OF CARE 251 MG/DL (70-110)
[2021-03-12 11:19] VITALS: BP 147/69
[2021-03-12] MEDS ORDERED: AMLO-257 PO (12:00)
[2021-03-12] MEDS ORDERED: DOCU-270 PO (12:00)
[2021-03-12] MEDS ORDERED: EPOE10003 SQ (12:02)
[2021-03-12] MEDS ORDERED: METO25 PO (12:02)
[2021-03-12] MEDS ORDERED: PANT-31 PO (12:03)
[2021-03-12] MEDS ORDERED: BISA10SU11 PR (12:04)
[2021-03-12] MEDS ORDERED: CLON0.1T2 PO (12:04)
[2021-03-12] MEDS ORDERED: INSU100V SQ (12:06)
[2021-03-12] MEDS ORDERED: LACT30L PO (12:08)
[2021-03-12] MEDS ORDERED: HYDR-4396 PO (12:08)
[2021-03-12] MEDS ORDERED: ZOLP-280 PO (12:09)
[2021-03-12] MEDS ORDERED: CASP50VI IVPB (12:11)
[2021-03-12] MEDS ORDERED: MERO500P IVPB (12:14)
[2021-03-12 12:20] LABS: GLUCOMETER DEV NAME(LOC) 5N.1C; GLUCOSE,POINT OF CARE 162 MG/DL (70-110)
[2021-03-12 15:23] VITALS: BP 160/78
== END 2021-03-12 17:15 | DRG 907 ==
LOC: EMS 02:48 → ICU 09:59 → 5S 03-05 21:55
PROVIDERS: ADMIT Internal Medicine; ATTEND Internal Medicine
PROC: 0WJG0ZZ Inspection of Peritoneal Cavity, Open Approach (ICD-10-PCS; 2021-03-04)
PROC: 0DB80ZZ Excision of Small Intestine, Open Approach (ICD-10-PCS; 2021-03-04)
PROC: 0WPG03Z Removal of Infusion Device from Peritoneal Cavity, Open Approach (ICD-10-PCS; principal; 2021-03-04 06:00)
DX: T85.71XA Infection and inflammatory reaction due to peritoneal dialysis catheter, initial encounter (principal); K63.1 Perforation of intestine (nontraumatic); A41.9 Sepsis, unspecified organism; N18.6 End stage renal disease; K65.0 Generalized (acute) peritonitis; E46 Unspecified protein-calorie malnutrition; E87.1 Hypo-osmolality and hyponatremia; E87.2 Acidosis; I13.2 Hypertensive heart and chronic kidney disease with heart failure and with stage 5 chronic kidney disease, or end stage renal disease; N25.81 Secondary hyperparathyroidism of renal origin; Z16.12 Extended spectrum beta lactamase (ESBL) resistance; D63.1 Anemia in chronic kidney disease; E11.22 Type 2 diabetes mellitus with diabetic chronic kidney disease; E11.41 Type 2 diabetes mellitus with diabetic mononeuropathy; E11.65 Type 2 diabetes mellitus with hyperglycemia; E66.01 Morbid (severe) obesity due to excess calories; E83.51 Hypocalcemia; E83.39 Other disorders of phosphorus metabolism; K94.21 Gastrostomy hemorrhage; F41.1 Generalized anxiety disorder; G89.29 Other chronic pain; I50.9 Heart failure, unspecified; G57.90 Unspecified mononeuropathy of unspecified lower limb; M54.9 Dorsalgia, unspecified; Z20.822 Contact with and (suspected) exposure to COVID-19; B96.1 Klebsiella pneumoniae [K. pneumoniae] as the cause of diseases classified elsewhere; M54.50 Low back pain, unspecified; K59.00 Constipation, unspecified; R34 Anuria and oliguria; R74.8 Abnormal levels of other serum enzymes; R62.7 Adult failure to thrive; Y84.1 Kidney dialysis as the cause of abnormal reaction of the patient, or of later complication, without mention of misadventure at the time of the procedure; Z53.31 Laparoscopic surgical procedure converted to open procedure; Z91.19 Patient's noncompliance with other medical treatment and regimen; Z99.2 Dependence on renal dialysis; Z79.4 Long term (current) use of insulin; Z68.32 Body mass index [BMI] 32.0-32.9, adult; Z79.899 Other long term (current) drug therapy
CPT/HCPCS: 71045; 72146; 72148; 74176; 80053; 80074; 82962; 83605; 83690; 83735; 83880; 84100; 84484; 85014; 85018; 85025; 86850; 86900; 86901; 87015; 87040; 87070; 87077; 87081; 87101; 87186; 87205; 87206; 87340; 88307; 88321; 89051; 90935; 93005; 97162; 99291; C9290; G0378; J0637; J0885; J1100; J1170; J1815; J2185; J2250; J2270; J2274; J2370; J2405; J2501; J2543; J2704; J3010; J3370; J3490; J7030; J7050; J7060; 36415-L1; 36415-TC; Z7610

== ENCOUNTER 2022-06-23 11:43 | Emergency (ER) | payer MEDICARE, OTHER ==
[~2022-06-23] VITALS: Ht 177.8 cm; Wt 102.0 kg
[~2022-06-23 11:43] MED LIST changes: +AMLO-257 PO; +BISA10SU11 PR; +CALC667C PO; +CASP50VI IVPB; +CLON0.1T2 PO; +DOCU-385 PO; +EPOE10003 SQ; +HYDR-4396 PO; +INSU100V SQ; +LACT10SO10 PO; +LOSA100T58 PO; -LOSA25TA21 PO; +MERO500P IVPB; +METO100T14 PO; +METO25 PO; +NIFE-129 PO; -NIFE10 PO; +PANT-31 PO; +ZOLP-280 PO
[2022-06-23 12:49] LABS: BASOPHILS % (AUTO) 0.7 % (0.0-2.0); EOSINOPHILS % (AUTO) 1.1 % (1.0-6.0); HEMATOCRIT 39.9 % (41-53); HEMOGLOBIN 13.1 g/dL (13.5-17.5); LYMPHOCYTES # (AUTO) 1.2 K/uL (1.0-4.8); LYMPHOCYTES % (AUTO) 16.4 % (22.0-44.0); MEAN CORPUSCULAR HEMOGLOBIN 28.8 pg (26.0-34.0); MEAN CORPUSCULAR HGB CONC 32.8 G/dL (31.0-37.0); MEAN CORPUSCULAR VOLUME 88 fL (80-100); MONOCYTES # (AUTO) 0.5 K/uL (0.1-1.0); MONOCYTES % (AUTO) 7.1 % (2.0-9.0); NEUTROPHILS # (AUTO) 5.4 K/uL (1.8-7.7); NEUTROPHILS % (AUTO) 74.7 % (40.0-70.0); PLATELET COUNT (AUTO) 213 K/uL (150-450); RED BLOOD CELL COUNT(AUTO) 4.54 MIL/uL (4.50-5.90); RED CELL DISTRIBUTION WIDTH 15.5 % (11.5-14.5)
[2022-06-23 13:18] LABS: LACTIC ACID 1.2 mmol/L (0.4-2.0)
[2022-06-23 13:24] LABS: CALCIUM, TOTAL 8.6 mg/dL (8.8-10.5); CREATININE 6.68 mg/dL (0.60-1.30); POTASSIUM 4.3 mmol/L (3.5-5.1)
[2022-06-23 13:28] LABS: ALBUMIN 3.8 g/dL (3.4-5.0); BILIRUBIN,TOTAL 0.5 mg/dL (0.1-1.0); TOTAL PROTEIN, SERUM 9.4 g/dL (6.4-8.2)
[2022-06-23 20:31] VITALS: BP 129/74
== END 2022-06-23 20:41 | disposition home or self-care (01) ==
LOC: EMS 11:59
DX: K59.00 Constipation, unspecified (principal); E11.43 Type 2 diabetes mellitus with diabetic autonomic (poly)neuropathy; K31.84 Gastroparesis; Z98.890 Other specified postprocedural states
CPT/HCPCS: 74022; 80053; 83605; 83690; 84484; 85025; 93005; 99285